=== PATIENT | male | born 2000 | race Caucasian/White ===

== ENCOUNTER → 2019-11-09 | Day surgery (SDC) | payer MEDICAID ==
[~2019-11-09] MED LIST: Bupivacaine 0.5%/EPINEPHrine 1:200,000 50 ML MDV ONE; Diatrizoate Meglumine/Diatrizoate Sodium 37% 120 ML Bottle PO ONE; HYDROmorphone 0.5 MG/0.5 ML Syringe IVPUSH PRN; HYDROmorphone 0.5 MG/0.5 ML Syringe ONE; Iopamidol 612 MG/ML 100 ML Bottle IVPUSH ONE; Ketorolac 30 MG/ML SDV ONE; Lactated Ringers 1,000 ML IV ONE; Lidocaine 1% 4 ML ONE; Midazolam 1 MG/ML 2 ML SDV ONE; Ondansetron 4 MG/2 ML SDV IVPUSH ONE; Ondansetron 4 MG/2 ML SDV ONE; Propofol 200 MG/20 ML SDV ONE; Rocuronium 50 MG/5 ML Vial ONE; Sodium Chloride 0.9% 10 ML Syringe FLUSH PRN; Succinylcholine/Sod PF 100 MG/5 ML SYRINGE IV ONE; fentaNYL 100 MCG/2 ML SDV IVPUSH PRN; fentaNYL 250 MCG/5 ML SDV ONE
--- NOTE | 2019-11-09 08:40 | EDM.PDOC ---
ED HPI GENERAL MEDICAL PROBLEM - General Chief Complaint: Abdominal Pain Stated Complaint: LOW ABDOMINAL PAIN /VOMITING Time Seen by Provider: 11/09/19 08:35 - History of Present Illness INITIAL COMMENTS - FREE TEXT/NARRATIVE: 19-year-old male presents the emergency room with right lower abdominal discomfort. Patient states his pain started last night. He had a normal BM last night but has not had any more since then he is passing gas. He seems to be voiding more frequently than normal. He ate around 2:00 this morning and attempt to try to make it better but it actually made it worse. Patient has had abdominal pain in the past but no prior surgeries. He is not aware of any fevers or chills. He has had some nausea and vomited one time last night. Right Lower Abdomen Pain Score (Numeric/FACES): 6 - Related Data Allergies Allergy/AdvReac Type Severity Reaction Status Date / Time No Known Allergies Allergy Verified 11/09/19 09:24 Home Meds: Home Meds Albuterol Sulfate 1 inhalation NEB ASDIRECTED 11/09/19 [History] ED ROS GENERAL - Review of Systems Review Of Systems: See Below Constitutional: Reports: No Symptoms HEENT: Reports: No Symptoms Respiratory: Reports: No Symptoms Cardiovascular: Reports: No Symptoms GI/Abdominal: Reports: Abdominal Pain, Decreased Appetite, Nausea. Denies: Constipation, Diarrhea : Reports: Frequency. Denies: Dysuria Musculoskeletal: Reports: No Symptoms Skin: Reports: No Symptoms Neurological: Reports: No Symptoms ED EXAM, GI/ABD - Physical Exam Exam: See Below Exam Limited By: No Limitations General Appearance: Alert, No Apparent Distress Head: Atraumatic, Normocephalic Neck: Normal Inspection, Supple, Non-Tender, Full Range of Motion Respiratory/Chest: No Respiratory Distress, Lungs Clear, Normal Breath Sounds Cardiovascular: Regular Rate, Rhythm, No Edema, No Murmur Course - Vital Signs Last Recorded V/S: Last Vital Signs Temp 37.8 C 11/09/19 08:33 Pulse 101 H 11/09/19 08:33 Resp 14 11/09/19 08:33 BP 128/74 11/09/19 08:33 Pulse Ox 98 11/09/19 08:33 - Orders/Labs/Meds Orders: Active Orders 24 hr Category Date Time Status Sodium Chloride 0.9% [Saline Flush] Med 11/09/19 09:09 Active 10 ml FLUSH ONETIME PRN Medication Orders Sodium Chloride (Saline Flush) 10 ml FLUSH ONETIME PRN PRN Reason: Keep Vein Open Last Admin: 11/09/19 09:59 Dose: 10 ml Labs: Laboratory Tests 11/09/19 11/09/19 11/09/19 Range/Units 08:50 09:02 09:02 WBC 11.78 H (4.23-9.07) K/mm3 RBC 4.50 L (4.63-6.08) M/mm3 Hgb 14.2 (13.7-17.5) gm/dl Hct 39.7 L (40.1-51.0) % MCV 88.2 (79.0-92.2) fl MCH 31.6 (25.7-32.2) pg MCHC 35.8 H (32.2-35.5) g/dl RDW Std Deviation 39.9 (35.1-43.9) fL Plt Count 210 (163-337) K/mm3 MPV 8.8 L (9.4-12.3) fl Neut % (Auto) 68.6 H (34.0-67.9) % Lymph % (Auto) 16.6 L (21.8-53.1) % [place] % (Auto) 8.5 (5.3-12.2) % Eos % (Auto) 5.9 (0.8-7.0) Baso % (Auto) 0.4 (0.1-1.2) % Neut # (Auto) 8.08 H (1.78-5.38) K/mm3 Lymph # (Auto) 1.95 (1.32-3.57) K/mm3 [place] # (Auto) 1.00 H (0.30-0.82) K/mm3 Eos # (Auto) 0.70 H (0.04-0.54) K/mm3 Baso # (Auto) 0.05 (0.01-0.08) K/mm3 Manual Slide Review Normal smear Sodium 140 (136-145) mEq/L Potassium 3.4 L (3.5-5.1) mEq/L Chloride 104 (98-107) mEq/L Carbon Dioxide 26 (21-32) mEq/L Anion Gap 13.4 (5-15) BUN 10 (7-18) mg/dL Creatinine 0.9 (0.7-1.3) mg/dL Est Cr Clr Drug Dosing 147.96 mL/min Estimated GFR (MDRD) > 60 (>60) mL/min BUN/Creatinine Ratio 11.1 L (14-18) Glucose 97 (74-106) mg/dL Calcium 8.8 (8.5-10.1) mg/dL Total Bilirubin 2.0 H (0.2-1.0) mg/dL AST 15 (15-37) U/L ALT 32 (16-63) U/L Alkaline Phosphatase 83 (46-116) U/L Total Protein 7.4 (6.4-8.2) g/dl Albumin 3.9 (3.4-5.0) g/dl Globulin 3.5 gm/dL Albumin/Globulin Ratio 1.1 (1-2) Lipase 37 L (73-393) U/L Urine Color Dark yellow (Yellow) Urine Appearance Clear (Clear) Urine pH 6.0 (5.0-8.0) Ur Specific [place] 1.025 (1.005-1.030) Urine Protein Negative (Negative) Urine Glucose (UA) Negative (Negative) Urine Ketones 2+ H (Negative) Urine Occult Blood Negative (Negative) Urine Nitrite Negative (Negative) Urine Bilirubin Negative (Negative) Urine Urobilinogen 0.2 (0.2-1.0) Ur Leukocyte Esterase Negative (Negative) Meds: Medications Generic Name Dose Route Start Last Admin Trade Name Freq PRN Reason Stop Dose Admin Sodium Chloride 10 ml 11/09/19 09:09 11/09/19 09:59 Saline Flush FLUSH 10 ml ONETIME PRN Administration Keep Vein Open Discontinued Medications Generic Name Dose Route Start Last Admin Trade Name Harryq PRN Reason Stop Dose Admin Diatrizoate Meglum/Diatrizoate Sod 120 ml 11/09/19 09:09 11/09/19 09:58 Gastrografin 37% PO 11/09/19 09:10 90 ml ONETIME ONE Administration Lactated Ringer's 1,000 mls @ 999 mls/hr 11/09/19 08:48 11/09/19 09:23 Ringers, Lactated IV 11/09/19 09:48 999 mls/hr .BOLUS ONE Administration Iopamidol 100 ml 11/09/19 09:09 11/09/19 09:58 Isovue-300 (61%) IVPUSH 11/09/19 09:10 100 ml ONETIME ONE Administration Ondansetron HCl 4 mg 11/09/19 08:48 11/09/19 09:20 Zofran IVPUSH 11/09/19 08:49 4 mg ONETIME ONE Administration - Re-Assessments/Exams Free Text/Narrative Re-Assessment/Exam: 11/09/19 08:51 The patient's exam is very suspicious for a developing appendicitis. However with his frequency, I informed the nurse, that I must see his urine report before he goes to CT. She voices understanding. Routine labs ordered. 11/09/19 10:24 The exam shows a retrocecal appendix with findings of appendicitis he has mildly enlarged spleen thought to be incidental. I have informed the patient of this. He agrees with calling the surgeon on-call. Case discussed with Dr. Sarmiento who will be down shortly to evaluate the patient. Departure - Departure Time of Disposition: 10:31 Disposition: DC/Tfer to [facility] Clinical Impression: Appendicitis - Discharge Information Referrals: PCP,Not In Area [Primary Care Provider] - Forms: ED Department Discharge Sepsis Event Note (ED) - Focused Exam Vital Signs: Vital Signs Temp Pulse Resp BP Pulse Ox 11/09/19 08:33 37.8 C 101 H 14 128/74 98 - My Orders Last 24 Hours: My Active Orders 11/09/19 09:09 Sodium Chloride 0.9% [Saline Flush] 10 ml FLUSH ONETIME PRN - Assessment/Plan Last 24 Hours: My Active Orders 11/09/19 09:09 Sodium Chloride 0.9% [Saline Flush] 10 ml FLUSH ONETIME PRN
--- NOTE | 2019-11-09 10:12 | CT ---
CT abdomen and pelvis Technique: Multiple axial sections were obtained from above the dome of the diaphragm inferiorly through the pubic symphysis. Intravenous and oral contrast has been given. Comparison: No previous abdominal imaging is available. Findings: Retrocecal appendix is seen which is dilated and shows inflammatory change. Findings are compatible with appendicitis. Other findings: Visualized lung bases show nothing acute. Liver contains no focal abnormality. Spleen is slightly generous in size with length of 14.0 cm. Adrenal glands show no nodule. Kidneys show symmetric contrast enhancement without hydronephrosis or mass. Gallbladder contains no calcified gallstones. Pancreas appears within normal limits. Aorta shows no aneurysm. No retroperitoneal adenopathy or mesenteric abnormalities are seen. No pelvic mass or adenopathy is identified. Bone windows shows no discrete osseous abnormality. Impression: 1. Retrocecal appendix showing findings of appendicitis. 2. Spleen size mildly enlarged which which I believe is most likely incidental. 3. No other acute finding is seen. Diagnostic code #5 This report was dictated in MDT
--- NOTE | 2019-11-09 11:05 | PCM.PREANE ---
Preanesthetic Assessment - Anesthesia/Transfusion/Family Hx Anesthesia History: Prior Anesthesia Without Reaction - Review of Systems General: No Symptoms Pulmonary: No Symptoms Cardiovascular: No Symptoms Gastrointestinal: No Symptoms Neurological: No Symptoms Other: Reports: None - Physical Assessment NPO Status Date: 11/09/19 NPO Status Time: 10:00 Vital Signs: Last Vital Signs Temp 100.1 F 11/09/19 08:33 Pulse 101 H 11/09/19 08:33 Resp 14 11/09/19 08:33 BP 128/74 11/09/19 08:33 Pulse Ox 98 11/09/19 08:33 Height: 1.85 m Weight: 83.915 kg ASA Class: 2E Mental Status: Alert & Oriented x3 Airway Class: Mallampati = 2 Dentition: Reports: Normal Dentition Thyro-Mental Finger Breadths: 3 Mouth Opening Finger Breadths: 3 ROM/Head Extension: Full Lungs: Clear to Auscultation, Normal Respiratory Effort Cardiovascular: Regular Rate, Regular Rhythm - Lab Values: Laboratory Last Values WBC 11.78 K/mm3 (4.23-9.07) H 11/09/19 09:02 RBC 4.50 M/mm3 (4.63-6.08) L 11/09/19 09:02 Hgb 14.2 gm/dl (13.7-17.5) 11/09/19 09:02 Hct 39.7 % (40.1-51.0) L 11/09/19 09:02 MCV 88.2 fl (79.0-92.2) 11/09/19 09:02 MCH 31.6 pg (25.7-32.2) 11/09/19 09:02 MCHC 35.8 g/dl (32.2-35.5) H 11/09/19 09:02 RDW Std Deviation 39.9 fL (35.1-43.9) 11/09/19 09:02 Plt Count 210 K/mm3 (163-337) 11/09/19 09:02 MPV 8.8 fl (9.4-12.3) L 11/09/19 09:02 Neut % (Auto) 68.6 % (34.0-67.9) H 11/09/19 09:02 Lymph % (Auto) 16.6 % (21.8-53.1) L 11/09/19 09:02 [place] % (Auto) 8.5 % (5.3-12.2) 11/09/19 09:02 Eos % (Auto) 5.9 (0.8-7.0) 11/09/19 09:02 Baso % (Auto) 0.4 % (0.1-1.2) 11/09/19 09:02 Neut # (Auto) 8.08 K/mm3 (1.78-5.38) H 11/09/19 09:02 Lymph # (Auto) 1.95 K/mm3 (1.32-3.57) 11/09/19 09:02 [place] # (Auto) 1.00 K/mm3 (0.30-0.82) H 11/09/19 09:02 Eos # (Auto) 0.70 K/mm3 (0.04-0.54) H 11/09/19 09:02 Baso # (Auto) 0.05 K/mm3 (0.01-0.08) 11/09/19 09:02 Manual Slide Review Normal smear 11/09/19 09:02 Sodium 140 mEq/L (136-145) 11/09/19 09:02 Potassium 3.4 mEq/L (3.5-5.1) L 11/09/19 09:02 Chloride 104 mEq/L (98-107) 11/09/19 09:02 Carbon Dioxide 26 mEq/L (21-32) 11/09/19 09:02 Anion Gap 13.4 (5-15) 11/09/19 09:02 BUN 10 mg/dL (7-18) 11/09/19 09:02 Creatinine 0.9 mg/dL (0.7-1.3) 11/09/19 09:02 Est Cr Clr Drug Dosing 147.96 mL/min 11/09/19 09:02 Estimated GFR (MDRD) > 60 mL/min (>60) 11/09/19 09:02 BUN/Creatinine Ratio 11.1 (14-18) L 11/09/19 09:02 Glucose 97 mg/dL (74-106) 11/09/19 09:02 Calcium 8.8 mg/dL (8.5-10.1) 11/09/19 09:02 Total Bilirubin 2.0 mg/dL (0.2-1.0) H 11/09/19 09:02 AST 15 U/L (15-37) 11/09/19 09:02 ALT 32 U/L (16-63) 11/09/19 09:02 Alkaline Phosphatase 83 U/L (46-116) 11/09/19 09:02 Total Protein 7.4 g/dl (6.4-8.2) 11/09/19 09:02 Albumin 3.9 g/dl (3.4-5.0) 11/09/19 09:02 Globulin 3.5 gm/dL 11/09/19 09:02 Albumin/Globulin Ratio 1.1 (1-2) 11/09/19 09:02 Lipase 37 U/L (73-393) L 11/09/19 09:02 Urine Color Dark yellow (Yellow) 11/09/19 08:50 Urine Appearance Clear (Clear) 11/09/19 08:50 Urine pH 6.0 (5.0-8.0) 11/09/19 08:50 Ur Specific [place] 1.025 (1.005-1.030) 11/09/19 08:50 Urine Protein Negative (Negative) 11/09/19 08:50 Urine Glucose (UA) Negative (Negative) 11/09/19 08:50 Urine Ketones 2+ (Negative) H 11/09/19 08:50 Urine Occult Blood Negative (Negative) 11/09/19 08:50 Urine Nitrite Negative (Negative) 11/09/19 08:50 Urine Bilirubin Negative (Negative) 11/09/19 08:50 Urine Urobilinogen 0.2 (0.2-1.0) 11/09/19 08:50 Ur Leukocyte Esterase Negative (Negative) 11/09/19 08:50 - Allergies Allergies/Adverse Reactions: Allergies Allergy/AdvReac Type Severity Reaction Status Date / Time No Known Allergies Allergy Verified 11/09/19 09:24 - Acknowledgements Anesthesia Type Planned: General Anesthesia Pt an Appropriate Candidate for the Planned Anesthesia: Yes Alternatives and Risks of Anesthesia Discussed w Pt/Guardian: Yes Pt/Guardian Understands and Agrees with Anesthesia Plan: Yes PreAnesthesia Questionnaire Respiratory History: Reports: Asthma, Other (See Below) Other Respiratory History: pneumonia x 1 Psychiatric History: Reports: Anxiety - Past Surgical History HEENT Surgical History: Reports: Other (See Below) Other HEENT Surgeries/Procedures: wisdom teeth extraction - SUBSTANCE USE Smoking Status *Q: Current Every Day Smoker Tobacco Use Within Last Twelve Months: Vaping Recreational Drug Use History: No - HOME MEDS Home Medications: Home Meds Albuterol Sulfate 1 inhalation NEB ASDIRECTED 11/09/19 [History] - CURRENT (IN HOUSE) MEDS Current Meds: Current Medications Sodium Chloride (Saline Flush) 10 ml FLUSH ONETIME PRN PRN Reason: Keep Vein Open Last Admin: 11/09/19 09:59 Dose: 10 ml Discontinued Medications Diatrizoate Meglum/Diatrizoate Sod (Gastrografin 37%) 120 ml PO ONETIME ONE Stop: 11/09/19 09:10 Last Admin: 11/09/19 09:58 Dose: 90 ml Lactated Ringer's (Ringers, Lactated) 1,000 mls @ 999 mls/hr IV .BOLUS ONE Stop: 11/09/19 09:48 Last Admin: 11/09/19 09:23 Dose: 999 mls/hr Iopamidol (Isovue-300 (61%)) 100 ml IVPUSH ONETIME ONE Stop: 11/09/19 09:10 Last Admin: 11/09/19 09:58 Dose: 100 ml Ondansetron HCl (Zofran) 4 mg IVPUSH ONETIME ONE Stop: 11/09/19 08:49 Last Admin: 11/09/19 09:20 Dose: 4 mg
--- NOTE | 2019-11-09 11:13 | PCM.HP.2 ---
H&P History of Present Illness - General Date of Service: 11/09/19 Admit Problem/Dx: Admission Diagnosis/Problem Admission Diagnosis/Problem Appendicitis Source of Information: Patient, Provider History Limitations: Reports: No Limitations - History of Present Illness Duration of Symptoms: Reports: Hour(s): Location: Reports: Abdomen Quality: Reports: Sharp, Stabbing Severity: Severe Associated Symptoms: Reports: Fever/Chills, Loss of Appetite, Nausea/Vomiting Other HPI/Comments: RLQ pain for one day with WBC 11,[address] scan showing evidence of acute appendicitis. Right Lower Abdomen Pain Score (Numeric/FACES): 6 - Related Data Allergies/Adverse Reactions: Allergies Allergy/AdvReac Type Severity Reaction Status Date / Time No Known Allergies Allergy Verified 11/09/19 09:24 Home Medications: Home Meds Albuterol Sulfate 1 inhalation NEB ASDIRECTED 11/09/19 [History] Past Medical History Respiratory History: Reports: Asthma, Other (See Below) Other Respiratory History: pneumonia x 1 Psychiatric History: Reports: Anxiety - Past Surgical History HEENT Surgical History: Reports: Other (See Below) Other HEENT Surgeries/Procedures: wisdom teeth extraction Social & Family History - Family History Family Medical History: Noncontributory - Tobacco Use Smoking Status *Q: Current Every Day Smoker Years of Tobacco use: 5 Packs/Tins Daily: 1 - Caffeine Use Caffeine Use: Reports: Coffee - Recreational Drug Use Recreational Drug Use: No H&P Review of Systems - Review of Systems: Review Of Systems: See Below General: Reports: Fever Pulmonary: Reports: No Symptoms Gastrointestinal: Reports: Abdominal Pain Genitourinary: Reports: No Symptoms Exam - Exam Exam: See Below - Vital Signs Vital Signs: Last Vital Signs Temp 37.8 C 11/09/19 08:33 Pulse 101 H 11/09/19 08:33 Resp 14 11/09/19 08:33 BP 128/74 11/09/19 08:33 Pulse Ox 98 11/09/19 08:33 Weight: 83.915 kg - Exam General: Alert, Oriented, Cooperative HEENT: Conjunctiva Clear Neck: Trachea Midline Lungs: Clear to Auscultation, Normal Respiratory Effort Cardiovascular: Regular Rate GI/Abdominal Exam: Soft, Tender Rectal (Males) Exam: Deferred Skin: Warm, Dry Neuro Extensive - Mental Status: Alert, Oriented x3, Normal Mood/Affect - Patient Data Lab Results Last 24 hrs: Laboratory Results - last 24 hr 11/09/19 11/09/19 11/09/19 Range/Units 08:50 09:02 09:02 WBC 11.78 H (4.23-9.07) K/mm3 RBC 4.50 L (4.63-6.08) M/mm3 Hgb 14.2 (13.7-17.5) gm/dl Hct 39.7 L (40.1-51.0) % MCV 88.2 (79.0-92.2) fl MCH 31.6 (25.7-32.2) pg MCHC 35.8 H (32.2-35.5) g/dl RDW Std Deviation 39.9 (35.1-43.9) fL Plt Count 210 (163-337) K/mm3 MPV 8.8 L (9.4-12.3) fl Neut % (Auto) 68.6 H (34.0-67.9) % Lymph % (Auto) 16.6 L (21.8-53.1) % [place] % (Auto) 8.5 (5.3-12.2) % Eos % (Auto) 5.9 (0.8-7.0) Baso % (Auto) 0.4 (0.1-1.2) % Neut # (Auto) 8.08 H (1.78-5.38) K/mm3 Lymph # (Auto) 1.95 (1.32-3.57) K/mm3 [place] # (Auto) 1.00 H (0.30-0.82) K/mm3 Eos # (Auto) 0.70 H (0.04-0.54) K/mm3 Baso # (Auto) 0.05 (0.01-0.08) K/mm3 Manual Slide Review Normal smear Sodium 140 (136-145) mEq/L Potassium 3.4 L (3.5-5.1) mEq/L Chloride 104 (98-107) mEq/L Carbon Dioxide 26 (21-32) mEq/L Anion Gap 13.4 (5-15) BUN 10 (7-18) mg/dL Creatinine 0.9 (0.7-1.3) mg/dL Est Cr Clr Drug Dosing 147.96 mL/min Estimated GFR (MDRD) > 60 (>60) mL/min BUN/Creatinine Ratio 11.1 L (14-18) Glucose 97 (74-106) mg/dL Calcium 8.8 (8.5-10.1) mg/dL Total Bilirubin 2.0 H (0.2-1.0) mg/dL AST 15 (15-37) U/L ALT 32 (16-63) U/L Alkaline Phosphatase 83 (46-116) U/L Total Protein 7.4 (6.4-8.2) g/dl Albumin 3.9 (3.4-5.0) g/dl Globulin 3.5 gm/dL Albumin/Globulin Ratio 1.1 (1-2) Lipase 37 L (73-393) U/L Urine Color Dark yellow (Yellow) Urine Appearance Clear (Clear) Urine pH 6.0 (5.0-8.0) Ur Specific [place] 1.025 (1.005-1.030) Urine Protein Negative (Negative) Urine Glucose (UA) Negative (Negative) Urine Ketones 2+ H (Negative) Urine Occult Blood Negative (Negative) Urine Nitrite Negative (Negative) Urine Bilirubin Negative (Negative) Urine Urobilinogen 0.2 (0.2-1.0) Ur Leukocyte Esterase Negative (Negative) Result Diagrams: 11/09/19 09:02 11/09/19 09:02 Sepsis Event Note - Evaluation Sepsis Screening Result: Possible Sepsis Risk - Focused Exam Vital Signs: Vital Signs Temp Pulse Resp BP Pulse Ox 11/09/19 08:33 37.8 C 101 H 14 128/74 98 Date Exam was Performed: 11/09/19 Time Exam was Performed: 11:11 *Q Meaningful Use (ADM) - VTE Risk Assess *Q Each Risk Factor Represents 1 Point: Minor Surgery Planned Total Score 1 Point Risk Factors: 1 Problem List Initiated/Reviewed/Updated: Yes Orders Last 24hrs: Active Orders 24 hr Category Date Time Status Admission Status [Patient Status] [ADT] Routine ADT 11/09/19 11:01 Active CORONAVIRUS COVID-19 MARIXA [MOLEC] Stat Lab 11/09/19 10:47 Received Sodium Chloride 0.9% [Saline Flush] Med 11/09/19 09:09 Active 10 ml FLUSH ONETIME PRN Schedule Procedure [COMM] Stat Oth 11/09/19 11:01 Ordered Medication Orders Sodium Chloride (Saline Flush) 10 ml FLUSH ONETIME PRN PRN Reason: Keep Vein Open Last Admin: 11/09/19 09:59 Dose: 10 ml Assessment/Plan Comment:: Acute appendicitis. Plan for laparoscopic appendectomy. - Mortality Measure Prognosis:: Good
--- NOTE | 2019-11-09 13:54 | PCM.POSTAN ---
POST ANESTHESIA ASSESSMENT - MENTAL STATUS Mental Status: Somnolent - VITAL SIGNS Vital Signs: Last Vital Signs Temp 98.3 F 11/09/19 13:44 Pulse 102 H 11/09/19 13:44 Resp 19 11/09/19 13:44 BP 139/74 11/09/19 13:44 Pulse Ox 98 11/09/19 13:44 - RESPIRATORY Respiratory Status: Respiratory Rate WNL, Airway Patent, O2 Saturation Stable - CARDIOVASCULAR CV Status: Pulse Rate WNL, Blood Pressure Stable - GASTROINTESTINAL GI Status: No Symptoms - PAIN Pain Score: 1 (sore throat) - POST OP HYDRATION Hydration Status: Adequate & Stable
--- NOTE | 2019-11-09 14:19 | PCM48HPAN ---
Post Anesthesia Note - EVALUATION WITHIN 48HRS OF ANESTHETIC Vital Signs in Normal Range: Yes Patient Participated in Evaluation: Yes Respiratory Function Stable: Yes Airway Patent: Yes Cardiovascular Function Stable: Yes Hydration Status Stable: Yes Pain Control Satisfactory: Yes Nausea and Vomiting Control Satisfactory: Yes Mental Status Recovered: Yes Vital Signs: Last Vital Signs Temp 97.8 F 11/09/19 14:00 Pulse 85 11/09/19 14:00 Resp 16 11/09/19 14:00 BP 129/72 11/09/19 14:00 Pulse Ox 96 11/09/19 14:00 - COMMENTS/OBSERVATIONS Free Text/Narrative:: patient is stable and is ready to be transferred to 2nd stage recovery for home discharge.
--- NOTE | 2019-11-09 14:50 | PCM.PRNOTE ---
- Free Text/Narrative Note: Operative Report Operation: laparoscopic appendectomy Date: 11/09/2019 Attending Surgeon: Phil Sarmiento MD Assisting: TIFFANY Smith Indication for Surgery:acute appendicitis Preoperative antibiotics: 2 g cefoxitin IV VTE prophylaxis: SCDs Estimated Blood Loss: 10 cc Findings: inflamed appendix Detailed Report: The patient underwent general endotracheal anesthesia after being placed supine on the operating table and initial timeout. The left arm was tucked at the patients side. The abdomen was prepped and draped in sterile fashion. A pre- incision timeout was performed confirming the patients identity and the operation to be performed. A Veress needle was inserted into the abdominal cavity below the left costal margin along the mid-clavicular line. The abdomen was insufflated with CO2 to 15 mm Hg. Gas was aspirated below the umbilicus with a syringe in order to ensure safe placement of a 12 mm bladed laparoscopic port. The 5mm 30 degree laparoscope was then inserted and viscera inspected. The appendix appeared inflamed with exudative change. Two additional 5 mm ports were placed under direct vision with the laparoscope one along the midline superior to the pubic symphysis and one in the left lower quadrant. The laparoscope was then placed through the left lower quadrant port for optimal visualization. Careful blunt dissection was performed with laparoscopic graspers until the appendix was freed from surrounding inflammatory attachments. The distal portion of the appendix was grasped with a laparoscopic David clamp and retracted anteriorly and inferiorly. The [place] Ligasure was used to create a window in the mesoappendix where the appendix was seen coming off the cecum. A 45 mm laparoscopic stapler with white cartridge was used to divide the appendix flush with the base of the cecum. The mesoappendix was divided using the Ligasure. The specimen was then placed in an Endocatch bag and removed through the umbilical port. The dissection field was suctioned and appeared hemostatic. The larger infraumbilical port was closed at the level of the fascia with vicryl suture using the PMI laparoscopic suture passer. Pneumoperitoneum was then released. All skin incisions were then closed with placement of subcuticular vicryl suture and dressed with dermabond. A total of 30 cc 0.5 % marcaine with epinephrine was used for local anesthesia at the incision sites. The patient tolerated the operation well, was extubated in the operating room and transferred to the PACU for routine post-anesthesia care.
== END | disposition home or self-care (01) ==
LOC: JD.ED 08:17 → JD.SDS 11:08
PROVIDERS: ATTEND Surgery
DX: K35.30 Acute appendicitis with localized peritonitis, without perforation or gangrene (principal); F17.210 Nicotine dependence, cigarettes, uncomplicated; J45.909 Unspecified asthma, uncomplicated; F41.9 Anxiety disorder, unspecified
CPT/HCPCS: 36415; 44970; 74177; 80053; 81003; 83690; 85025; 87635; 96361; 96374; 99285; J0330; J0694; J1170; J1885; J2001; J2250; J2405; J2704; J3010; J3490; J7120; Q9967; 00840; U0002

== ENCOUNTER 2020-03-13 02:51 | Emergency (ER) | payer MEDICAID ==
[2020-03-13] MEDS ORDERED: Lactated Ringers 1,000 ML IV ONE ×3 (03:36→05:45)
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
[2020-03-13] MEDS ORDERED: Potassium Chloride 20 MEQ Tab.ER PO ONE (04:51)
== END 2020-03-13 07:14 | disposition home or self-care (01) ==
LOC: JD.ED 02:51
DX: S93.401A Sprain of unspecified ligament of right ankle, initial encounter (principal); S90.31XA Contusion of right foot, initial encounter; S00.81XA Abrasion of other part of head, initial encounter; J45.909 Unspecified asthma, uncomplicated; Z90.49 Acquired absence of other specified parts of digestive tract; Z20.828 Contact with and (suspected) exposure to other viral communicable diseases; V89.2XXA Person injured in unspecified motor-vehicle accident, traffic, initial encounter
CPT/HCPCS: 36415; 70450; 71260; 72125; 72128; 72131; 73610; 73630; 74177; 80053; 80306; 80307; 81003; 82150; 83605; 85025; 85610; 85730; 86850; 86900; 86901; 87040; 87635; 99285; A9270; J7120; 99283; U0002